=== PATIENT | male | born 1950 | race Two or more races ===

== ENCOUNTER 2023-07-26 06:33 | Inpatient (IN) | payer OTHER ==
[~2023-07-26] VITALS: Ht 175.3 cm; Wt 108.0 kg
[~2023-07-26 06:33] MED LIST: BUPIVACAINE 0.5 % PF 150 MG/30 ML VIAL ONE; FENTANYL PF 250MCG/5ML AMPUL ONE; MIDAZOLAM HCL 2 MG/2ML VIAL ONE; POLYMYXIN B SULFATE 500,000 UNITS ONE
[2023-07-26] MEDS ORDERED: TRANEXAMIC ACID 3,000 MG in SODIUM CHLORIDE IRRIG SOLUTION 70 ML IR ONE (07:00)
[2023-07-26] MEDS ORDERED: METHYLENE BLUE 10 ML VIAL ONE (07:10)
[2023-07-26] MEDS ORDERED: OLME20TA13 PO (10:58)
[2023-07-26] MEDS ORDERED: ASPI-992 PO (10:58)
[2023-07-26] MEDS ORDERED: diphenhydrAMINE HCL 25 MG CAPSULE PO PRN (11:00)
[2023-07-26] MEDS ORDERED: MAG HYDROX/AL HYDROX/SIMETH 30 ML UDC PO PRN (11:00)
[2023-07-26] MEDS ORDERED: MENTHOL/CETYLPYRD (CEPACOL) 1 LOZ LOZENGE PO PRN (11:00)
[2023-07-26] MEDS ORDERED: MAGNESIUM HYDROXIDE 30 ML UDC PO PRN (11:00)
[2023-07-26] MEDS ORDERED: ONDANSETRON HCL/PF 4 MG/2 ML VIAL IV PRN (11:00)
[2023-07-26] MEDS ORDERED: LOSARTAN POTASSIUM 25 MG TABLET PO ONE (11:47)
[2023-07-26] MEDS: HYDROMORPHONE 1 MG/1 ML DISP.SYRIN IM/IV/SC PRN ×3 (11:53→20:59)
[2023-07-26 12:00] VITALS: BP 167/70; TEMP 98.4; O2SAT 95
[2023-07-26] MEDS ORDERED: oxyCODONE IR immediate release 5 MG PO ONE (12:00)
[2023-07-26] MEDS ORDERED: CLONIDINE HCL 0.1 MG TABLET PO PRN (12:00)
[2023-07-26] MEDS ORDERED: DOCUSATE SODIUM 250 MG CAPSULE PO PRN (12:30)
[2023-07-26] MEDS ORDERED: BISACODYL SUPP (10 MG) 10 MG/SUPP.RECT SUPP.RECT RC PRN (12:30)
[2023-07-26] MEDS ORDERED: ONDANSETRON HCL/PF 4 MG/2 ML VIAL IVP PRN (12:30)
[2023-07-26] MEDS ORDERED: SENNOSIDES 8.6 MG TABLET PO PRN (12:30)
[2023-07-26] MEDS ORDERED: ZOLPIDEM TARTRATE 5 MG TABLET PO PRN (12:30)
[2023-07-26] MEDS: LOSARTAN POTASSIUM 25 MG TABLET PO SCH ×2 (12:44→20:50)
[2023-07-26] MEDS ORDERED: HYDROCODONE/APAP 5/325MG TABLET PO PRN (13:00)
[2023-07-26] MEDS ORDERED: ACETAMINOPHEN 325 MG TABLET PO PRN (13:00)
[2023-07-26] MEDS: IV D5/0.45 NACL 1,000 ML IV PRN ×2 (14:40→22:34)
[2023-07-26] MEDS: ANCEF 1 GM/50 ML D5W IV SCH ×4 (15:21→22:34)
[2023-07-26 16:00] VITALS: BP 144/75; TEMP 98.8; O2SAT 94
[2023-07-26 20:00] VITALS: BP 149/78; TEMP 97.3; O2SAT 95
[2023-07-26] MEDS: FAMOTIDINE (20 MG) 20 MG TABLET PO SCH (20:50)
[2023-07-26] MEDS ORDERED: TAMSULOSIN 0.4 MG CAP.SR.24H PO SCH (22:00)
[2023-07-27] MEDS: HYDROMORPHONE 1 MG/1 ML DISP.SYRIN IM/IV/SC PRN ×6 (01:44→21:25)
[2023-07-27] MEDS: IV D5/0.45 NACL 1,000 ML IV PRN (05:15)
[2023-07-27] MEDS: oxyCODONE IR immediate release 5 MG PO PRN ×3 (05:34→16:03)
[2023-07-27 07:14] LABS: BASOPHILS % (AUTO) 0.2 % (0.0-2.0); EOSINOPHILS # (AUTO) 0.1 K/uL (0.0-0.7); EOSINOPHILS % (AUTO) 0.9 % (0.0-6.0); HEMATOCRIT 42 % (39-51); HEMOGLOBIN 13.9 g/dL (13.5-17.5); LYMPHOCYTES # (AUTO) 2.4 K/uL (0.8-4.8); MEAN CORPUSCULAR HEMOGLOBIN 30 PG (26.0-33.0); MEAN CORPUSCULAR HGB CONC 33 g/dl (31.0-36.0); MEAN CORPUSCULAR VOLUME 91 fL (80-96); MONOCYTES # (AUTO) 0.9 K/uL (0.1-1.30); MONOCYTES % (AUTO) 8.8 % (2.0-12.0); NEUTROPHILS # (AUTO) 6.6 K/uL (1.8-8.9); NEUTROPHILS % (AUTO) 66.1 % (43.0-81.0); PLATELET COUNT (AUTO) 236 K/uL (150-450); RED BLOOD CELL COUNT(AUTO) 4.63 MIL/uL (4.5-6.0); RED CELL DISTRIBUTION WIDTH 14.2 % (11.5-15.0); WHITE BLOOD COUNT (AUTO) 9.9 K/uL (4.3-11.0)
[2023-07-27 08:25] VITALS: BP 162/87; TEMP 98.4; O2SAT 95
[2023-07-27 08:46] LABS: CALCIUM, SERUM 8.5 mg/dL (8.5-10.1); CARBON DIOXIDE 26 mmol/L (21-32); CHLORIDE 102 mmol/L (98-107); CREATININE 1.2 mg/dL (0.6-1.3); GLUCOSE 118 mg/dL (74-106); MAGNESIUM 2.1 mg/dL (1.8-2.4); PHOSPHORUS 3.3 mg/dL (2.5-4.9); SODIUM SERUM 136 mmol/L (136-145); UREA NITROGEN, BLOOD 12 mg/dL (7-18)
[2023-07-27] MEDS ORDERED: ASPIRIN 325 MG TABLET PO SCH (09:00)
[2023-07-27] MEDS ORDERED: Medication Not On Formulary EA (Olmesartan Medoxomil (Benicar) 20 MG) PO SCH (09:00)
[2023-07-27] MEDS: ASPIRIN 325 MG TABLET PO SCH (09:19)
[2023-07-27] MEDS: LOSARTAN POTASSIUM 25 MG TABLET PO SCH ×2 (09:19→21:38)
[2023-07-27] MEDS: FAMOTIDINE (20 MG) 20 MG TABLET PO SCH ×2 (09:19→21:39)
[2023-07-27 16:00] VITALS: BP 174/88; TEMP 98.9; O2SAT 97
[2023-07-27 21:25] VITALS: BP 171/83
[2023-07-27 22:10] VITALS: BP 160/80
[2023-07-28] MEDS: HYDROMORPHONE 1 MG/1 ML DISP.SYRIN IM/IV/SC PRN ×2 (04:54→13:15)
[2023-07-28] MEDS: oxyCODONE IR immediate release 5 MG PO PRN ×2 (06:48→15:39)
[2023-07-28 07:11] LABS: BASOPHILS % (AUTO) 0.2 % (0.0-2.0); EOSINOPHILS # (AUTO) 0.1 K/uL (0.0-0.7); HEMATOCRIT 40 % (39-51); HEMOGLOBIN 13.5 g/dL (13.5-17.5); LYMPHOCYTES % (AUTO) 20.8 % (20.0-44.0); MEAN CORPUSCULAR HEMOGLOBIN 31 PG (26.0-33.0); MEAN CORPUSCULAR HGB CONC 34 g/dl (31.0-36.0); MEAN CORPUSCULAR VOLUME 90 fL (80-96); MONOCYTES % (AUTO) 10.2 % (2.0-12.0); NEUTROPHILS # (AUTO) 6.4 K/uL (1.8-8.9); NEUTROPHILS % (AUTO) 67.8 % (43.0-81.0); PLATELET COUNT (AUTO) 223 K/uL (150-450); RED BLOOD CELL COUNT(AUTO) 4.42 MIL/uL (4.5-6.0); RED CELL DISTRIBUTION WIDTH 13.7 % (11.5-15.0); WHITE BLOOD COUNT (AUTO) 9.5 K/uL (4.3-11.0)
[2023-07-28 07:38] LABS: CALCIUM, SERUM 8.5 mg/dL (8.5-10.1); CARBON DIOXIDE 27 mmol/L (21-32); CHLORIDE 101 mmol/L (98-107); GLUCOSE 110 mg/dL (74-106); MAGNESIUM 2.1 mg/dL (1.8-2.4); POTASSIUM 3.8 mmol/L (3.5-5.1); SODIUM SERUM 136 mmol/L (136-145); UREA NITROGEN, BLOOD 10 mg/dL (7-18)
[2023-07-28 08:00] VITALS: BP 162/77; TEMP 98.6; O2SAT 91
[2023-07-28 08:19] VITALS: BP 162/77
[2023-07-28] MEDS: FAMOTIDINE (20 MG) 20 MG TABLET PO SCH (08:19)
[2023-07-28] MEDS: ASPIRIN 325 MG TABLET PO SCH (08:19)
[2023-07-28] MEDS: LOSARTAN POTASSIUM 25 MG TABLET PO SCH (08:19)
[2023-07-28] MEDS ORDERED: BISA10SU61 RC (10:52)
[2023-07-28] MEDS ORDERED: ASPI-992 PO (10:52)
== END 2023-07-28 16:30 | disposition home or self-care (01) | DRG 470 ==
LOC: DS 06:33 → MED 10:55
PROVIDERS: ADMIT Student in an Organized Health Care Education/Training Program; ATTEND Student in an Organized Health Care Education/Training Program
PROC: 0SRD0N9 Replacement of Left Knee Joint with Patellofemoral Synthetic Substitute, Cemented, Open Approach (ICD-10-PCS; principal; 2023-07-26)
DX: M17.12 Unilateral primary osteoarthritis, left knee (principal); I10 Essential (primary) hypertension; E66.9 Obesity, unspecified; Z68.35 Body mass index [BMI] 35.0-35.9, adult; Z79.82 Long term (current) use of aspirin; Z79.899 Other long term (current) drug therapy; Z88.6 Allergy status to analgesic agent; Z91.199 Patient's noncompliance with other medical treatment and regimen due to unspecified reason; Z82.49 Family history of ischemic heart disease and other diseases of the circulatory system; X58.XXXA Exposure to other specified factors, initial encounter; Y99.0 Civilian activity done for income or pay
CPT/HCPCS: 36415; 80048-TC; 83735-TC; 84100-TC; 85025-TC; 88304-TC; 88311-TC; 97110-TC; 97116-TC; 97530-TC; 97760-TC; A4217; A4223; C1713; C1776; G0378; J0690; J1100; J1170; J2250; J2405; J2704; J3010; J3490; J7030; J7060; L1830; Q9968